=== PATIENT | female | born 1985 | race Caucasian/White ===

== ENCOUNTER 2020-09-19 15:58 | Outpatient (CLI) | payer OTHER | END 2020-09-19 17:34 | disposition home or self-care (01) | LOC: NST 15:58 | PROVIDERS: ATTEND Obstetrics & Gynecology | DX: Z34.83 Encounter for supervision of other normal pregnancy, third trimester (principal) ==

== ENCOUNTER 2020-10-11 16:05 | Outpatient (CLI) | payer OTHER | END 2020-10-11 16:35 | disposition home or self-care (01) | LOC: NST 16:05 | PROVIDERS: ATTEND Obstetrics & Gynecology Maternal & Fetal Medicine | DX: Z34.83 Encounter for supervision of other normal pregnancy, third trimester (principal) ==

== ENCOUNTER 2020-10-26 02:42 | Inpatient (IN) | payer OTHER ==
[~2020-10-26] VITALS: Ht 167.6 cm; Wt 88.5 kg
[2020-10-26] MEDS ORDERED: NIFEDIPINE ER30 MG PO (03:38)
[2020-10-26] MEDS ORDERED: ZYRTEC10 M3 PO (03:38)
[2020-10-26] MEDS ORDERED: PEPCID AC20 MG PO (03:39)
[2020-10-26] MEDS ORDERED: NASACORT16.9 ML NS (03:39)
[2020-10-26] MEDS ORDERED: PRENATAL TABLE1 EAC1 PO (03:39)
[2020-10-26] MEDS ORDERED: SERTRALINE HCL100 MG (08:14)
== END 2020-10-29 15:03 | disposition home or self-care (01) | DRG 788 ==
LOC: LDR 02:42 → OB/GYN 02:42
PROVIDERS: ADMIT Obstetrics & Gynecology Maternal & Fetal Medicine; ATTEND Obstetrics & Gynecology Maternal & Fetal Medicine
PROC: 4A1HXFZ Monitoring of Products of Conception, Cardiac Rhythm, External Approach (ICD-10-PCS; 2020-10-26)
PROC: 10D00Z1 Extraction of Products of Conception, Low, Open Approach (ICD-10-PCS; principal; 2020-10-26 15:00)
DX: O62.1 Secondary uterine inertia (principal); O42.02 Full-term premature rupture of membranes, onset of labor within 24 hours of rupture; Z3A.37 37 weeks gestation of pregnancy; Z37.0 Single live birth; Z20.822 Contact with and (suspected) exposure to COVID-19